=== PATIENT | male | born 1985 | race Hispanic/Latino ===

== ENCOUNTER 2019-04-29 01:27 | Emergency (ER) | payer MEDICAID, OTHER ==
[2019-04-29 02:07] LABS: #Basophils 0.1 thou/uL (0.0-0.2); #Eosinphils 0.4 thou/uL (0.0-0.7); #Lymphocytes 3.6 thou/uL (1.20-3.40); #Monocytes 1.2 thou/uL (0.11-0.59); #Neutrophils 11.3 thou/uL (1.40-6.50); %Basophils 0.7 % (0.0-1.0); %Eosinophils 2.2 % (0.0-10.0); %Lymphocytes 21.5 % (21.0-51.0); %Monocytes 7.4 % (0.0-10.0); %Neutrophils 68.2 % (42.0-75.0); Mean Corpuscular HGB CONC 33.5 g/dL (32.0-36.0); Mean Corpuscular Hemoglobin 30.3 pg (27.0-31.0); Mean Corpuscular Volume 90.4 fL (78.0-98.0); Platelet Count 260 thou/uL (130-400); RBC Distribution Width 11.9 % (11.5-14.5); Red Blood Cell (RBC) Count 5.29 mill/uL (4.70-6.10); White Blood Cell (WBC) Count 16.6 thou/uL (4.8-10.8)
[2019-04-29 02:29] LABS: ALT (SGPT) 20 U/L (8-55); AST (SGOT) 20 U/L (5-34); Acetaminophen Less than 6.0 mcg/mL (10.0-30.0); Albumin 4.6 g/dL (3.5-5.0); Alcohol Less than 10 mg/dL (Less than 10); Alkaline Phosphatase 71 U/L (40-110); Anion Gap 13 mmol/L (10-20); BUN (Urea Nitrogen) 11 mg/dL (8.9-20.6); Bilirubin, Total 0.6 mg/dL (0.2-1.2); Calc. Creatinine Clearance 0 mL/min (70-130); Calcium 9.3 mg/dL (7.8-10.44); Carbon Dioxide 26 mmol/L (22-29); Chloride 106 mmol/L (98-107); Estimated GFR-MDRD Greater than 90; Globulin 2.8 g/dL (2.4-3.5); Glucose 94 mg/dL (70-105); Potassium 4.5 mmol/L (3.5-5.1); Protein, Total 7.4 g/dL (6.0-8.3); Salicylate Less than 8.0 mg/dL (15.0-30.0); Sodium 140 mmol/L (136-145)
[2019-04-29 03:31] LABS: Bacteria/HPF None Seen HPF (None Seen); Bilirubin Negative (Negative); Blood, Urine Negative (Negative); Clarity Clear (Clear); Glucose, Urine (Dipstick) Normal (Negative); Leukocyte 75 Leu/uL (Negative); Nitrite Negative (Negative); Protein, Urine (Dipstick) 20 mg/dL (Neg-Trace); RBC/HPF 0-3 HPF (0-3); Squamous Epithelial None Seen HPF (0-3); Urobilinogen Normal mg/dL (Less than 2); WBC/HPF 21-50 HPF (0-3)
[2019-04-29 03:55] LABS: Amphetamine Detected (NotDetected); Barbiturates Screen Not Detected (NotDetected); Benzodiazepine Screen Not Detected (NotDetected); Cocaine Metabolite Screen Not Detected (NotDetected); Medtox Control Line Valid? VALID (VALID); Medtox Reader # READER 4; Methadone Not Detected (NotDetected); Methamphetamine Not Detected (NotDetected); Opiate Screen Not Detected (NotDetected); Oxycodone Screen Not Detected (NotDetected); Phencyclidine (PCP) Not Detected (NotDetected); THC/Cannabinoid Screen Detected (NotDetected); Tricyclic Screen Not Detected (NotDetected)
[2019-04-29] MEDS ORDERED: Azithromycin 250 MG TAB ONE (04:11)
[2019-04-29] MEDS ORDERED: Lidocaine 1% PF 5 ML VIAL ONE (04:11)
[2019-04-29] MEDS ORDERED: cefTRIAXone\\ROCEPHIN 250 MG VIAL ONE (04:11)
[2019-04-30 17:33] LABS: Chlam.trachomatis by PCR,Urine Not Detected (NotDetected)
== END 2019-04-29 04:35 | disposition home or self-care (01) ==
LOC: ERS 01:27
DX: F15.10 Other stimulant abuse, uncomplicated (principal); N34.1 Nonspecific urethritis; I10 Essential (primary) hypertension
CPT/HCPCS: 36415; 80053; 80306; 80307; 81003; 81015; 85025; 87491; 87591; 93005; J0696; J2001

== ENCOUNTER 2019-04-29 22:44 | Emergency (ER) | payer OTHER ==
[2019-04-29 23:21] LABS: #Basophils 0.1 thou/uL (0.0-0.2); #Eosinphils 0.4 thou/uL (0.0-0.7); #Lymphocytes 3.5 thou/uL (1.20-3.40); #Monocytes 1.2 thou/uL (0.11-0.59); #Neutrophils 10.6 thou/uL (1.40-6.50); %Basophils 0.3 % (0.0-1.0); %Eosinophils 2.6 % (0.0-10.0); %Monocytes 7.7 % (0.0-10.0); %Neutrophils 67.4 % (42.0-75.0); Mean Corpuscular HGB CONC 33.3 g/dL (32.0-36.0); Mean Corpuscular Hemoglobin 30.3 pg (27.0-31.0); Mean Corpuscular Volume 91.1 fL (78.0-98.0); Mean Platelet Volume 7.3 fL (7.4-10.4); Platelet Count 248 thou/uL (130-400); RBC Distribution Width 11.8 % (11.5-14.5); Red Blood Cell (RBC) Count 4.95 mill/uL (4.70-6.10); White Blood Cell (WBC) Count 15.8 thou/uL (4.8-10.8)
[2019-04-29 23:43] LABS: Acetaminophen Less than 6.0 mcg/mL (10.0-30.0); Alcohol Less than 10 mg/dL (Less than 10); Salicylate Less than 8.0 mg/dL (15.0-30.0)
[2019-04-29 23:44] LABS: ALT (SGPT) 19 U/L (8-55); AST (SGOT) 25 U/L (5-34); Albumin 4.3 g/dL (3.5-5.0); Alkaline Phosphatase 73 U/L (40-110); Anion Gap 12 mmol/L (10-20); BUN (Urea Nitrogen) 11 mg/dL (8.9-20.6); Bilirubin, Total 0.4 mg/dL (0.2-1.2); Calc. Creatinine Clearance 0 mL/min (70-130); Calcium 9.1 mg/dL (7.8-10.44); Carbon Dioxide 26 mmol/L (22-29); Chloride 106 mmol/L (98-107); Estimated GFR-MDRD Greater than 90; Globulin 2.8 g/dL (2.4-3.5); Glucose 84 mg/dL (70-105); Potassium 3.8 mmol/L (3.5-5.1); Protein, Total 7.1 g/dL (6.0-8.3); Sodium 140 mmol/L (136-145)
[2019-04-30 00:23] LABS: Bilirubin Negative (Negative); Blood, Urine Negative (Negative); Clarity Clear (Clear); Glucose, Urine (Dipstick) Normal (Negative); Leukocyte Negative Leu/uL (Negative); Nitrite Negative (Negative); Protein, Urine (Dipstick) Negative (Neg-Trace); Urobilinogen Normal mg/dL (Less than 2)
[2019-04-30 00:32] LABS: Cocaine Metabolite Screen Not Detected (NotDetected); Medtox Reader # READER 4; Methamphetamine Not Detected (NotDetected); Opiate Screen Not Detected (NotDetected); Phencyclidine (PCP) Not Detected (NotDetected); THC/Cannabinoid Screen Detected (NotDetected)
[2019-04-30 00:33] LABS: Amphetamine Detected (NotDetected); Barbiturates Screen Not Detected (NotDetected); Benzodiazepine Screen Not Detected (NotDetected); Medtox Control Line Valid? VALID (VALID); Methadone Not Detected (NotDetected); Oxycodone Screen Not Detected (NotDetected); Tricyclic Screen Not Detected (NotDetected)
== END 2019-04-30 02:03 | disposition home or self-care (01) ==
LOC: ERS 22:44
DX: F19.10 Other psychoactive substance abuse, uncomplicated (principal); R44.0 Auditory hallucinations; I10 Essential (primary) hypertension; F17.210 Nicotine dependence, cigarettes, uncomplicated
CPT/HCPCS: 36415; 36416; 80053; 80306; 80307; 81003; 81015; 84443; 85025; 87491; 87591; 93005; 99284; J0696; J2001

== ENCOUNTER 2020-02-07 01:05 | Emergency (ER) | payer OTHER ==
[2020-02-07] MEDS ORDERED: HYDROcodone/Acetaminophen 10/325 mg Tablet ONE (01:47)
--- NOTE | 2020-02-07 07:54 | RAD ---
EXAM: XR Sacrum and Coccyx STANDARD PROVIDED CLINICAL HISTORY: Injury after fall. Tailbone pain. COMPARISON: None FINDINGS: The sacroiliac joints are symmetric in appearance bilaterally. No obvious fracture is seen. No lytic or sclerotic osseous lesions are identified. IMPRESSION: No acute osseous abnormality seen.
--- NOTE | 2020-02-07 07:55 | RAD ---
EXAM: XR Lumbar Spine 2 Or 3 View PROVIDED CLINICAL HISTORY: Injury after fall. Tailbone pain. COMPARISON: None FINDINGS: There is straightening of the normal lumbar curvature. There are 5 nonrib-bearing lumbar-type vertebr al bodies. Slight right convex curvature of thoracolumbar spine is present which may be related to positioning. The vertebral body heights and intervertebral disc spaces are within normal limits. No f racture or subluxation is seen involving the lumbar spine. IMPRESSION: 1. Straightening of normal lumbar curvature. 2. No fracture or subluxation involving lumbar spine.
== END 2020-02-07 03:03 | disposition home or self-care (01) ==
LOC: ERS 01:05
DX: S32.2XXA Fracture of coccyx, initial encounter for closed fracture (principal); I10 Essential (primary) hypertension; G80.9 Cerebral palsy, unspecified; F17.210 Nicotine dependence, cigarettes, uncomplicated; W10.9XXA Fall (on) (from) unspecified stairs and steps, initial encounter
CPT/HCPCS: 72100; 72220

== ENCOUNTER 2020-09-10 14:36 | Emergency (ER) | payer OTHER | END 2020-09-10 16:24 | disposition home or self-care (01) | LOC: ERS 14:36 | DX: B86 Scabies (principal); I10 Essential (primary) hypertension; F17.210 Nicotine dependence, cigarettes, uncomplicated | CPT/HCPCS: 99282 ==

== ENCOUNTER 2021-07-14 19:35 | Emergency (ER) | payer OTHER | END 2021-07-14 20:08 | disposition left against medical advice (07) | LOC: ERS 19:35 | DX: Z53.21 Procedure and treatment not carried out due to patient leaving prior to being seen by health care provider (principal) ==

== ENCOUNTER 2022-02-13 14:05 | Emergency (ER) | payer OTHER | END 2022-02-13 16:43 | disposition home or self-care (01) | LOC: ERS 14:05 | DX: S02.2XXA Fracture of nasal bones, initial encounter for closed fracture (principal); W55.32XA Struck by other hoof stock, initial encounter; Y93.67 Activity, basketball | CPT/HCPCS: 70160 ==

== ENCOUNTER 2024-04-11 14:31 | Emergency (ER) | payer OTHER | END 2024-04-11 16:00 | disposition home or self-care (01) | LOC: ERS 14:31 | DX: S46.202A Unspecified injury of muscle, fascia and tendon of other parts of biceps, left arm, initial encounter (principal); I10 Essential (primary) hypertension; F17.210 Nicotine dependence, cigarettes, uncomplicated | CPT/HCPCS: 99283 ==